=== PATIENT | male | born 1950 | race Caucasian/White ===

== ENCOUNTER 2018-09-22 09:03 | Inpatient (IN) | payer MEDICARE ==
--- NOTE | 2018-09-15 10:34 | HP ---
HISTORY AND PHYSICAL: DATE OF ADMISSION/SURGERY: 09/22/18 DATE OF OFFICE VISIT: 09/15/18 SURGEON: Anastasia Diamond MD * (DICTATED BY CHANDANA BRODY) PROCEDURE: Right total knee arthroplasty. CHIEF COMPLAINT: Right knee pain. HISTORY OF PRESENT ILLNESS: Mr. Perez is a 68-year-old gentleman with continued complaints of right knee pain. He has failed conservative treatment and elected to proceed with the right total knee arthroplasty. PAST MEDICAL HISTORY: 1. Hypertension. 2. High cholesterol. 3. History of a subdermal hematoma. PAST SURGICAL HISTORY: Appendectomy. CURRENT MEDICATIONS: 1. Simvastatin 80 mg a day. 2. Lisinopril 20 mg a day. 3. Metoprolol mg a day. 4. Hydrochlorothiazide 25 mg a day. ALLERGIES: No known drug allergies. FAMILY HISTORY: Cancer. SOCIAL HISTORY: He is a 68-year-old gentleman, lives with his . He does not smoke or use drugs. Drinks 1 beer a day. REVIEW OF SYSTEMS: A complete 14-point review of systems was reviewed with the patient. It was all negative or noncontributory. He denies the history of DVT , PE, hepatitis, HIV or anesthesia problems. PHYSICAL EXAMINATION GENERAL: He is well developed, well nourished, in no acute distress. VITAL SIGNS: He stands 6 feet 7 inches tall, weighs 190 pounds. His blood pressure is 128/88, heart rate 68. HEENT: Normocephalic, atraumatic. NECK: Supple. No palpable lymph nodes. PULMONARY: The lungs are clear to auscultation bilaterally. CARDIO: Regular rate and rhythm. Strong S1 and S2. ABDOMEN: The abdomen is soft, nontender, and nondistended. NEUROLOGICAL: He is alert and oriented x3. MUSCULOSKELETAL: Right lower extremity: The skin is intact. There are no open wounds or abrasions. There is a moderate effusion of the right knee. There is a 10 degree of varus deformity. Range of motion is 15 to 110 degrees of flexion with patellofemoral crepitus. He is able to dorsiflex and plantarflex. He has a 2+ dorsalis pedis pulse and intact sensation. ASSESSMENT AND PLAN: Mr. Perez is a 68-year-old gentleman with end-stage osteoarthritis of the right knee. He has failed conservative treatment and elected to proceed with the right total knee arthroplasty. The surgery is scheduled for 09/22/[address] Diamond discussed the risks and benefits of the surgery at today's visit and all of his questions were answered. He will follow up with Dr. Diamond 2 weeks after the surgery. CHANDANA BRODY [id number]/[facility] #: [id number] MINNIE
[~2018-09-22 09:03] MED LIST: Buffered Lidocaine 1% SYRIN* 1 ML/SYRINGE INTRADERM ONE; Dexamethasone IV* 4 MG/ML 1 ML (4 MG) IV SLOW PU ONE; Famotidine IV* 10 MG/ML 2 ML (20 mg) IV ONE; Gabapentin CAP(*) 300 MG PO ONE; Lactated Ringers 1000 ML Bag* 1,000 ML IV SCH; Tranexamic Acid 1,000 MG in NS 0.9% 50 ML* (outpatient use) IV SCH; celeCOXIB CAP* 200 MG PO ONE
--- OUTSIDE RECORDS SUMMARY | 2018-09-22 09:06 | XMS REPORT | Continuity of Care Document ---
:1950 External Reference #:[id number] Author Name Bing Sargent Care Team Providers Name Role Phone Franck Anglin MD Primary Care Physician Unavailable Payers Date Identification Numbers Payment Provider Subscriber Effective: 2014 Policy Number: [id number] Medicare Blue Ppo Anatoly Perez PayID: [id number] [address] [address] [place] [address] Problems Active Problems Provider Date Acquired genu varum Anastasia Diamond M.D. Onset: 08/26/2018 Localized, primary osteoarthritis Anastasia Diamond M.D. Onset: 08/26/2018 Social History Type Date Description Comments Sex Unknown Lives With Spouse Occupation Retired ETOH Use Currently consumes alcohol Tobacco Use Start: Unknown Patient has never smoked Smoking Status Reviewed: 09/11/18 Patient has never smoked Exercise Type/Frequency Exercises sporadically Allergies, Adverse Reactions, Alerts Description No Known Drug Allergies Medications Active Medications SIG Qnty Indications Ordering Date Provider Simvastatin 1 by mouth 100tabs Unknown 80mg Tablets every day Lisinopril 1 by mouth 30tabs Unknown 20mg Tablets every day Metoprolol Succinate ER 1 by mouth 30tabs Unknown 25mg every day Tablets ER 24HR Hydrochlorothiazide Derrek, 25mg Tablets Franck Dodge MD History Medications Naproxen 1 tablet bid 60tabs 715.16 Eric Rosario, 11/21/2011 - 250mg with food M.DLiliam 08/25/2018 Tablets Lipitor Unknown - 09/10/2018 Vital Signs Date Vital Result Comment 09/11/2018 1:45pm Height 67 inches 5'7" Weight 190.00 lb Heart Rate 68 /min BP Systolic 128 mmHg BP Diastolic 88 mmHg Respiratory Rate 18 /min Body Temperature 98.5 F Pain Level 3 BMI (Body Mass Index) 29.8 kg/m2 08/26/2018 9:35am Height 67 inches 5'7" Weight 189.00 lb Heart Rate 68 /min BP Systolic 120 mmHg BP Diastolic 82 mmHg Respiratory Rate 18 /min Body Temperature 97.9 F Pain Level 6 BMI (Body Mass Index) 29.6 kg/m2 Results Test Date Facility Test Result H/L Range Note Urinalysis Profile 09/11/2018 [facility] Urine Color Yellow [address] [place] [address] [phone] Urine Appearance Cloudy Urine Specific [place] 1.023 N 1.010-1.030 Urine pH 5.0 N 5-9 Urine Urobilinogen Negative Negative Urine Ketones Negative Negative Urine Protein Negative Negative Urine Leukocytes Trace Abnormal Negative Urine Blood Negative Negative * * Abnormal Negative 1 Urine Nitrite Negative Negative Urine Bilirubin Negative Negative Urine Glucose Negative Negative Urine White Blood Cell 1+(6-10/hpf) Abnormal Absent Urine Red Blood Cell Trace(0-2/hpf) Absent Urine Bacteria Absent Absent Urine Hyaline Casts Present Abnormal Absent CBC Auto Diff 09/11/2018 [facility] White Blood 7.6 10^3/uL N 3.5-10.[address] [place] [address] [phone] Red Blood Count 4.31 10^6/uL N 4.18-5.48 Hemoglobin 14.0 g/dL N 14.0-18.0 Hematocrit 40 % Low 42-52 Mean Corpuscular Volume 93 fL N 80-94 Mean Corpuscular Hemoglobin 33 pg High 27-31 Mean Corpuscular HGB Conc 35 g/dL N 31-36 Red Cell Distribution Width 13 % N 10-15 Platelet Count 248 10^3/uL N 150-450 Mean Platelet Volume 9.2 fL N 7.4-10.4 Abs Neutrophils 4.1 10^3/uL N 1.5-7.7 Abs Lymphocytes 2.4 10^3/uL N 1.0-4.8 Abs Monocytes 0.7 10^3/uL N 0-0.8 Abs Eosinophils 0.5 10^3/uL N 0-0.6 Abs Basophils 0.1 10^3/uL N 0-0.2 Abs Nucleated RBC 0.0 10^3/uL Granulocyte % 53.6 % Lymphocyte % 31.0 % Monocyte % 8.6 % Eosinophil % 6.1 % Basophil % 0.7 % Nucleated Red Blood Cells % 0.1 Inr/Protime 09/11/2018 [facility] Inr 0.95 N 0.82-1.[address] [place] [address] [phone] Laboratory test 09/11/2018 [facility] Partial 33.3 seconds N 26.0-38.[address] [place] [address] PTT [phone] Comp Metabolic 09/11/2018 [facility] Sodium 139 mmol/L N 135- [address] [place] [address] [phone] Potassium 4.0 mmol/L N 3.5-5.0 Chloride 103 mmol/L N 101-111 Co2 Carbon Dioxide 27 mmol/L N 22-32 Anion Gap 9 mmol/L N 2-11 Glucose 105 mg/dL High 70-100 Blood Urea Nitrogen 26 mg/dL High 6-24 Creatinine 1.15 mg/dL N 0.67-1.17 BUN/Creatinine Ratio 22.6 High 8-20 Calcium 10.1 mg/dL N 8.6-10.3 Total Protein 6.8 g/dL N 6.4-8.9 Albumin 4.5 g/dL N 3.2-5.2 Globulin 2.3 g/dL N 2-4 Albumin/Globulin Ratio 2.0 N 1-3 Total Bilirubin 0.50 mg/dL N 0.2-1.0 Alkaline Phosphatase 69 U/L N 34-104 Alt 13 U/L N 7-52 Ast 17 U/L N 13-39 Egfr Non- 63.1 >60 Egfr 76.3 >60 3 Type & Screen 09/11/2018 [facility] Patient Blood Type O Positive [address] [place] [address] [phone] Antibody Screen NEGATIVE Urine Culture And 09/11/2018 [facility] Urine Culture SEE RESULT [address] [place] [address] [phone] Xray 08/26/2018 [facility] Knee 3 Views <pending> [address] [place] [address] [phone] 1 *Ascorbic acid is present which may interfere with detection of blood. 2 Standard intensity warfarin therapeutic range: 2.0-3.0 High intensity warfarin therapeutic range: 2.5-3.5 3 Because ethnic data is not always readily available, this report includes an eGFR for both -Americans and non- Americans. The National Kidney Disease Education Program (NKDEP) does not endorse the use of the MDRD equation for patients that are not between the ages of 18 and 70, are , have extremes of body size, muscle mass, or nutritional status, or are non- or non-. According to the National Kidney Foundation, irrespective of diagnosis, the stage of the disease is based on the level of kidney function: Stage Description GFR(mL/min/1.73 m(2)) 1 Kidney damage with normal or decreased GFR 90 2 Kidney damage with mild decrease in GFR 60-89 3 Moderate decrease in GFR 30-59 4 Severe decrease in GFR 15-29 5 Kidney failure <15 (or dialysis) 4 SEE RESULT BELOW Name: ANATOLY PEREZ : [address]: Anastasia Diamond MD Acct: [id number] Unit: [id number] AGE: 68 Location: [facility] Re09/11/18 SEX: M Status: REG REF SPEC: [id number] POPPY: 09/11/18 [facility] DR: Anastasia Diamond MD REQ: [id number] RECD: 09/11/18 STATUS: COMP _ SOURCE: URINE SPDESC: ORDERED: Urine Culture QUERIES: Urine Source: Clean Catch Procedure Result Reported Site Urine Culture Final 09/13/18- 08 ML No Growth (<1,000 CFU/mL) * ML - Main Lab . END OF REPORT DEPARTMENT OF PATHOLOGY, [address] [place] [address] Ismael Painter M.D. Director [facility] # [id number] Procedures Date Code Description Status 11/21/2011 19621 Xray Knee 3 Views Completed 11/21/2011 11388 Rad Exam; Knee, Ap&L Completed Encounters Type Date Location Provider Dx Diagnosis Office Visit 08/26/2018 [facility] Anastasia Diamond, M25.561 Pain in right 9:00a [facility] knee M17.11 Unilateral primary osteoarthritis, right knee M25.461 Effusion, right knee M21.161 Varus deformity, not elsewhere classified, right knee Office Visit 11/21/2011 3:00p Orthopedic Jocelin Silva, 716.96 Arthropathy Unspec [facility] Lower Leg [facility] Plan of Treatment Future Appointment(s):10/02/2018 11:15 am - CHANDANA Munoz at [facility]09/22/2018 5:00 pm - EZEQUIEL Meraz at [facility]09/22/2018 5:00 pm - EZEQUIEL Maldonado at [facility]09/22/2018 5:00 pm - Anastasia Diamond M.D. at [facility]09/11/2018 - Anastasia Diamond M.D.M25.561 Pain in right kneeFollow up:Follow up: 2 weeks after [id number] Unilateral primary osteoarthritis, right kneeM21.161 Varus deformity, not elsewhere classified, right kneeM25.461 Effusion, right knee
--- OUTSIDE RECORDS SUMMARY | 2018-09-22 09:07 | XMS REPORT | Continuity of Care Document ---
:1950 External Reference #:[id number] Author Name Annette Bauer Care Team Providers Name Role Phone Franck Anglin MD Primary Care Physician Unavailable Payers Date Identification Numbers Payment Provider Subscriber Effective: 2014 Policy Number: [id number] Medicare Blue Ppo Anatoly Perez PayID: [id number] [address] [address] [place] [address] Problems Active Problems Provider Date Acquired genu varum Anastasia Diamond M.D. Onset: 08/26/2018 Localized, primary osteoarthritis Anastasia Diamond M.D. Onset: 08/26/2018 Social History Type Date Description Comments Sex Unknown Lives With Spouse Occupation Retired ETOH Use Currently consumes alcohol Tobacco Use Start: Unknown Patient has never smoked Smoking Status Reviewed: 08/26/18 Patient has never smoked Exercise Type/Frequency Exercises sporadically Medications Active Medications SIG Qnty Indications Ordering Provider Date Lipitor Unknown Simvastatin Unknown Lisinopril Unknown Metoprolol Succinate ER Unknown Hydrochlorothiazide Franck Anglin, 25mg Tablets History Medications Naproxen 1 tablet bid 60tabs 715.16 Eric Rosario, 11/21/2011 - 250mg with food Elian 08/25/2018 Tablets Vital Signs Date Vital Result Comment 08/26/2018 9:35am Height 67 inches 5'7" Weight 189.00 lb Heart Rate 68 /min BP Systolic 120 mmHg BP Diastolic 82 mmHg Respiratory Rate 18 /min Body Temperature 97.9 F Pain Level 6 BMI (Body Mass Index) 29.6 kg/m2 Procedures Date Code Description Status 11/21/2011 62199 Xray Knee 3 Views Completed 11/21/2011 96212 Rad Exam; Knee, Ap&L Completed Encounters Type Date Location Provider Dx Diagnosis Office Visit 11/21/2011 Orthopedic Jocelin Lewise, 716.96 Arthropathy Unspec 3:00p [facility] Lower Leg Plan of Treatment Future Appointment(s):09/11/2018 1:30 pm - Anastasia Diamond M.D. at [facility]08/26/2018 - Anastasia Diamond M.D.M25.561 Pain in right kneeNew Xrays:Knee 3 Views RT, Ordered: 08/26/18Follow up:Follow up: 7-10 days before [id number] Unilateral primary osteoarthritis, right kneeM25.461 Effusion, right kneeFollow up:Follow up:M21.161 Varus deformity, not elsewhere classified , right knee
--- OUTSIDE RECORDS SUMMARY | 2018-09-22 09:07 | XMS REPORT | Continuity of Care Document ---
:1950 External Reference #:[id number] Author Name Barbara Purdy Care Team Providers Name Role Phone Franck Anglin MD Primary Care Physician Unavailable Payers Date Identification Numbers Payment Provider Subscriber Effective: 2014 Policy Number: [id number] Medicare Blue Ppo Anatoly Perez PayID: [id number] [address] [address] [place] [address] Problems Active Problems Provider Date Acquired genu [...] Eric Rosario, 11/21/2011 - 250mg with food MArnav 08/25/2018 Tablets Lipitor Unknown - 09/10/2018 Vital [...] Date Facility Test Result H/L Range Note Xray 08/26/2018 [facility] Knee 3 Views RT <pending> [address] [place] [address] [phone] Procedures Date Code Description Status 11/21/2011 02532 Xray Knee 3 Views Completed 11/21/2011 38659 Rad Exam; Knee, Ap&L Completed Encounters Type Date Location Provider Dx Diagnosis Office Visit 08/26/2018 Orthopedic Anastasia Diamond, M25.561 Pain in right 9:00a [facility] knee M17.11 Unilateral primary osteoarthritis, right knee M25.461 Effusion, right knee M21.161 Varus deformity, not elsewhere classified, right knee Office Visit 11/21/2011 3:00p Orthopedic Jocelin Silva, 716.96 Arthropathy Unspec [facility] Lower Leg [facility] Plan of Treatment Future Appointment(s):10/02/2018 11:15 am - CHANDANA Munoz at [facility]09/22/2018 5:00 pm - EZEQUIEL Meraz at [facility]/22/2018 5:00 pm - EZEQUIEL Maldonado at [facility]09/22/2018 5:00 pm - Anastasia Diamond M.D. at [facility]09/11/2018 - Anastasia Diamond M.D.M25.561 Pain in right kneeFollow up:Follow up: 2 weeks after [id number] Unilateral primary osteoarthritis, right kneeM21.161 Varus deformity, not elsewhere classified, right kneeM25.461 Effusion, right knee
--- OUTSIDE RECORDS SUMMARY | 2018-09-22 09:07 | XMS REPORT | Continuity of Care Document ---
:1950 External Reference #:[id number] Author Name Franck Anglin MD Address [address] [place] [address] Care Team Providers Name Role Phone Franck Anglin MD Care Team Information Yarn Packer Unavailable Payers Date Identification Numbers Payment Provider Subscriber Effective: Policy Number: [id number] [facility] Expires: 2011 Group Number: [id number] Name: BC/[place] of [place] [address] PayID: [id number] Effective: 2011 Policy Number: [id number] [facility] Expires: 2014 Group Name: [employer] [facility] [address] [address] PayID: [id number] [place] [address] Effective: 2014 Policy Number: [employer] Anatoly El Ana [id number] [employer] PayID: [id number] [address] [address] [place] [address] Problems Active Problems Provider Date Essential hypertension Vielka Chan M.D. Onset: 08/29/2011 Pure hypercholesterolemia Vielka Chan M.D. Onset: 08/29/2011 Screening for cancer Vielka Chan M.D. Onset: 08/29/2011 Benign prostatic hypertrophy without Georgiana Mcfarlane M.D., R.D. Onset: 2011 outflow obstruction Senile hyperkeratosis Onset: 08/29/2011 Family History Date Family Member(s) Observation Comments General No prostate or colon CA. Father due to "Old Age" () Father CAD Father Hypercholesterolemia : (1994) Mother due to Cancer Mother Hypercholesterolemia Mother Mother Age 69 Of Brain Tumor. First Son 08/22/1987 First Son Jacob First Daughter Dada First Daughter 02/06/1983 Second Daughter Elsa Second Daughter 12/04/1984 First Sister Colon polyps First Sister One Younger Sister, Alive And Well. Fourth Sister Elsa Social History Type Date Description Comments Sex Unknown Marital Status Patient is Living Situation Lives with spouse. Diet Eats oreos. Eats a lot of fish. Spends part of year at place in [place]. Wears a hat, but still gets sun on his head. Sees a derm regularly for his skin. 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 Cigarette Use Smoked About 20 Years Or 15 Pack-Years, Quit 1982. Alcohol Currently consumes alcohol, drinks 4 six packs of beer a week Tobacco Use Start: Unknown End: Patient is a former smoker Unknown Daily Caffeine Drinks on average 1 cup of coffee a day Exercise Type/Frequency Exercises regularly. Current Primarily bicycles. Allergies, Adverse Reactions, Alerts Description No Known Drug Allergies Medications Active Medications SIG Qnty Indications Ordering Date Provider Metoprolol Tartrate AT The Start Of 90tabs Franck 50mg Therapy Take MD Derrek 6 Tablets One-Half (1/2) Tablet Nightly For The First Week, Then Take 1 Tablet Nightly Thereafter Hydrochlorothiazide AT The Start Of 90tabs Franck 25mg Therapy Take MD Derrek 5 Tablets One-Half (1/2) Tablet Daily For First Week, Then Take 1 Tablet Daily Thereafter Lisinopril Take 1 Tablet 90tabs I10 Franck 10mg Tablets Daily MD Derrek 5 Naproxen take one pill by 180tabs Vielka Sanchez 250mg Tablets mouth twice a Elian Chan 3 day Simvastatin Take 1 Tablet 90tabs Franck 80mg Tablets Daily MD Derrek 3 History Medications Aspirin Adult Low Dose 1 tab by mouth 30tabs Z00.00 Franck Derrek, - daily 09/09/2018 81mg Tablets Metoprolol Succinate take one 90tabs Vielka M. 09/02/2012 - ER tablet by Elian Chan 12/21/2014 50mg Tablets ER 24HR mouth every morning Metoprolol Tartrate 1 po qd 90tabs Vielka M. 08/07/2012 - 50mg Elian Chan 09/02/2012 Tablets Diazepam 1-2 tabs q6h 8tabs V76.9 Vielka M. 08/02/2011 - 5mg Tablets prn anxiety Elian Chan 09/16/2013 Periostat Georgiana Mcfarlane, 09/18/2009 - 20mg Tablets Elian, R.D. 09/16/2013 Metoprolol Tartrate 1 po bid 180tabs Georgiana Mcfarlane, 07/08/2008 - 25mg Elian, R.D. 05/30/2010 Tablets Diazepam 1-2 tabs q6h 8tabs Georgiana Mcfarlane, 08/13/2006 - 5mg Tablets prn anxiety Elian, R.D. 08/02/2011 Metoprolol XL 1 qd 90tabs Vielka M. 05/21/2004 - 50mg Elian Chan 08/07/2012 Tablets KCL 1 po qd 90tabs Vielka M. 05/11/2004 - 10Meq Tablets Elian Chan 08/07/2012 Chlorthalidone 1 qd 90tabs Georgiana Mcfarlane, 09/19/2003 - 25mg Elian, R.D. 08/02/2011 Tablets Lipitor one qd 90tabs Vielka M. 05/18/2003 - 40mg Tablets Elian Chan 08/07/2012 Lipitor one qd 90tabs Keny Sandra, 03/24/2002 - 20mg Tablets DanielDLiliam 05/18/2003 Lipitor One qd 90tabs Keny Sandra, 03/01/2002 - 10mg Tablets MLiliamDLiliam 03/24/2002 Immunizations CPT Code Status Date Vaccine Lot # [id number] Given 12/21/2014 Pneumovax 23 (PPSV23) 65+ years or high risk 2 to [id number] 63 year old 82005 Given 12/21/2014 Influenza Vaccine High Dose PF [id number] Given 08/02/2011 Tdap (Adacel) [id number] Refused 12/19/2017 Influenza Virus Vaccine, Quadrivalent, 3 Yr > Quad , Preserv Free [id number] Refused 12/19/2017 Prevnar-13 Pneumococcal Conjugate Vaccine [id number] Refused 12/16/2016 Zoster Vaccine [id number] Refused 12/16/2016 Influenza Virus Vaccine, Quadrivalent, 3 Yr > Quad , Preserv Free [id number] Refused 12/25/2015 Influenza Virus Vaccine, Quadrivalent, 3 Yr > Quad , Preserv Free Vital Signs Date Vital Result Comment 09/09/2018 9:05am Weight 188.00 lb Weight 85.277 kg BP Systolic 132 mmHg BP Diastolic 72 mmHg Heart Rate 64 /min Body Temperature 97.4 F Respiratory Rate 16 /min O2 % BldC Oximetry 97 % 12/19/2017 8:07am Weight 193.00 lb Weight 87.545 kg BP Systolic 134 mmHg BP Diastolic 72 mmHg Heart Rate 54 /min Body Temperature 97.3 F Respiratory Rate 16 /min Height 67.5 inches 5'7.50" BMI (Body Mass Index) 29.8 kg/m2 O2 % BldC Oximetry 98 % 12/16/2016 8:03am Weight 185.00 lb Weight 83.916 kg BP Systolic 136 mmHg BP Diastolic 76 mmHg Heart Rate 52 /min Body Temperature 96.2 F Respiratory Rate 12 /min Height 66.5 inches 5'6.50" BMI (Body Mass Index) 29.4 kg/m2 12/25/2015 12:57pm Weight 192.00 lb Weight 87.091 kg BP Systolic 165 mmHg BP Diastolic 88 mmHg Heart Rate 56 /min Height 66 inches 5'6" BMI (Body Mass Index) 31.0 kg/m2 12/21/2014 8:04am Weight 180.00 lb Weight 81.648 kg BP Systolic 140 mmHg BP Diastolic 90 mmHg Heart Rate 56 /min Height 67 inches 5'7" BMI (Body Mass Index) 28.2 kg/m2 09/16/2013 8:27am Weight 174.00 lb Weight 78.926 kg BP Systolic 142 mmHg BP Diastolic 72 mmHg Heart Rate 60 /min Body Temperature 97.6 F Height 67 inches 5'7" BMI (Body Mass Index) 27.2 kg/m2 08/07/2012 9:00am Weight 190.00 lb Weight 86.184 kg BP Systolic 128 mmHg BP Diastolic 82 mmHg Heart Rate 52 /min Height 66.25 inches 5'6.25" BMI (Body Mass Index) 30.4 kg/m2 08/02/2011 8:57am Weight 178.00 lb Weight 80.741 kg BP Systolic 122 mmHg BP Diastolic 70 mmHg Heart Rate 80 /min Height 67 inches 5'7" BMI (Body Mass Index) 27.9 kg/m2 09/18/2009 1:26pm Weight 170.00 lb Weight 77.112 kg BP Systolic 130 mmHg BP Diastolic 80 mmHg Heart Rate 60 /min Height 66.75 inches 5'6.75" BMI (Body Mass Index) 26.8 kg/m2 09/12/2008 8:28am Weight 164.00 lb Weight 74.390 kg BP Systolic 130 mmHg BP Diastolic 78 mmHg Heart Rate 64 /min Height 67 inches 5'7" BMI (Body Mass Index) 25.7 kg/m2 09/07/2007 1:48pm Weight 190.00 lb Weight 86.184 kg BP Systolic 132 mmHg BP Diastolic 84 mmHg Heart Rate 82 /min Height 67 inches 5'7" BMI (Body Mass Index) 29.8 kg/m2 08/13/2006 1:43pm Weight 185.00 lb Weight 83.916 kg BP Systolic 136 mmHg BP Diastolic 74 mmHg Heart Rate 68 /min Height 67 inches 5'7" BMI (Body Mass Index) 29.0 kg/m2 06/12/2005 12:44pm Weight 184.00 lb Weight 83.462 kg BP Systolic 140 mmHg BP Diastolic 86 mmHg Heart Rate 76 /min Height 66.5 inches 5'6.50" BMI (Body Mass Index) 29.3 kg/m2 05/21/2004 1:44pm Weight 183.00 lb Weight 83.009 kg BP Systolic 160 mmHg BP Diastolic 100 mmHg Heart Rate 84 /min Respiratory Rate 18 /min Height 67 inches 5'7" BMI (Body Mass Index) 28.7 kg/m2 09/19/2003 4:13pm Weight 181.00 lb Weight 82.102 kg BP Systolic 160 mmHg BP Diastolic 80 mmHg 05/18/2003 2:42pm Weight 180.00 lb Weight 81.648 kg BP Systolic 140 mmHg BP Diastolic 100 mmHg Heart Rate 80 /min Respiratory Rate 18 /min Height 67 inches BMI (Body Mass Index) 28.2 kg/m2 03/24/2002 1:55pm Weight 188.00 lb Weight 85.300 kg BP Systolic 140 mmHg BP Diastolic 98 mmHg Heart Rate 76 /min Respiratory Rate 18 /min Height 67.5 inches BMI (Body Mass Index) 29.0 kg/m2 Results Test Date Facility Test Result H/L Range Note Statin 11/13/2017 [facility] Ast (Sgot) 18 U/L N 13 -39 [phone] Alt (SGPT) 16 U/L N 7-52 Lipid Profile 11/13/2017 [facility] Triglycerides 145 mg/dL 1 (Trig/Chol/HDL) [phone] Cholesterol 140 mg/dL 2 HDL Cholesterol 39.3 mg/dL 3 LDL Cholesterol 72 mg/dL 4 Basic Metabolic 11/13/2017 [facility] Sodium 142 mmol /L N 135-145 Panel [phone] Potassium 4.1 mmol/L N 3.5-5.0 Chloride 106 mmol/L N 101-111 Co2 Carbon Dioxide 30 mmol/L N 22-32 Anion Gap 6 mmol/L N 2-11 Glucose 94 mg/dL N 70-100 Blood Urea Nitrogen 20 mg/dL N 6-24 Creatinine 1.07 mg/dL N 0.67-1.17 BUN/Creatinine Ratio 18.7 N 8-20 Calcium 9.8 mg/dL N 8.6-10.3 Egfr Non- 68.7 >60 Egfr 83.2 >60 5 CBC No Diff 11/13/2017 [facility] White Blood 6.1 10^ 3/uL N 3.5-10.8 [phone] Count Red Blood Count 4.13 10^6/uL N 4.00-5.40 Hemoglobin 13.2 g/dL Low 14.0-18.0 Hematocrit 38 % Low 42-52 Mean Corpuscular Volume 92 fL N 80-94 Mean Corpuscular Hemoglobin 32 pg High 27-31 Mean Corpuscular HGB Conc 35 g/dL N 31-36 Red Cell Distribution Width 13 % N 10.5-15 Platelet Count 236 10^3/uL N 150-450 Mean Platelet Volume 8.5 um3 N 7.4-10.4 CBC Auto Diff 11/28/2016 [facility] White Blood 6.5 10^3/uL N 3.5-10.8 [phone] Count Red Blood Count 4.47 10^6/uL N 4.0-5.4 Hemoglobin 14.1 g/dL N 14.0-18.0 Hematocrit 42 % N 42-52 Mean Corpuscular Volume 93 fL N 80-94 Mean Corpuscular Hemoglobin 32 pg High 27-31 Mean Corpuscular HGB Conc 34 g/dL N 31-36 Red Cell Distribution Width 13 % N 10.5-15 Platelet Count 222 10^3/uL N 150-450 Mean Platelet Volume 9 um3 N 7.4-10.4 Abs Neutrophils 3.7 10^3/uL N 1.5-7.7 Abs Lymphocytes 1.9 10^3/uL N 1.0-4.8 Abs Monocytes 0.5 10^3/uL N 0-0.8 Abs Eosinophils 0.4 10^3/uL N 0-0.6 Abs Basophils 0 10^3/uL N 0-0.2 Abs Nucleated RBC 0 10^3/uL N Granulocyte % 56.1 % N 38-83 Lymphocyte % 29.2 % N 25-47 Monocyte % 7.3 % N 1-9 Eosinophil % 6.7 % High 0-6 Basophil % 0.7 % N 0-2 Nucleated Red Blood Cells % 0.1 N Comp Metabolic Panel 11/28/2016 [facility] Sodium 142 mmol/L N 133-145 [phone] Potassium 4.4 mmol/L N 3.5-5.0 Chloride 106 mmol/L N 101-111 Co2 Carbon Dioxide 29 mmol/L N 22-32 Anion Gap 7 mmol/L N 2-11 Glucose 90 mg/dL N 70-100 Blood Urea Nitrogen 17 mg/dL N 6-24 Creatinine 1.02 mg/dL N 0.67-1.17 BUN/Creatinine Ratio 16.7 N 8-20 Calcium 10.2 mg/dL N 8.6-10.3 Total Protein 6.9 g/dL N 6.4-8.9 Albumin 4.7 g/dL N 3.2-5.2 Globulin 2.2 g/dL N 2-4 Albumin/Globulin Ratio 2.1 N 1-3 Total Bilirubin 0.80 mg/dL N 0.2-1.0 Alkaline Phosphatase 54 U/L N 34-104 Alt 20 U/L N 7-52 Ast 22 U/L N 13-39 Egfr Non- 72.8 N >60 Egfr 93.7 N >60 6 Lipid Profile 11/28/2016 [facility] Triglycerides 132 mg/dL N 7 (Trig/Chol/HDL) [phone] Cholesterol 180 mg/dL N 8 HDL Cholesterol 53.7 mg/dL N 9 LDL Cholesterol 100 mg/dL N 10 Lipid Profile 12/14/2015 [facility] Triglycerides 176 mg/dL N 11 (Trig/Chol/HDL) [phone] Cholesterol 181 mg/dL N 12 HDL Cholesterol 52.9 mg/dL N 13 LDL Cholesterol 93 mg/dL N 14 Comp Metabolic Panel 12/14/2015 [facility] Sodium 140 mmol/L N 133-145 [phone] Potassium 4.3 mmol/L N 3.5-5.0 Chloride 104 mmol/L N 101-111 Co2 Carbon Dioxide 29 mmol/L N 22-32 Anion Gap 7 mmol/L N 2-11 Glucose 90 mg/dL N 70-100 Blood Urea Nitrogen 17 mg/dL N 6-24 Creatinine 0.96 mg/dL N 0.67-1.17 BUN/Creatinine Ratio 17.7 N 8-20 Calcium 9.9 mg/dL N 8.6-10.3 Total Protein 6.8 g/dL N 6.4-8.9 Albumin 4.4 g/dL N 3.2-5.2 Globulin 2.4 g/dL N 2-4 Albumin/Globulin Ratio 1.8 N 1-3 Total Bilirubin 0.80 mg/dL N 0.2-1.0 Alkaline Phosphatase 56 U/L N 34-104 Alt 17 U/L N 7-52 Ast 19 U/L N 13-39 Egfr Non- 78.4 N >60 Egfr 100.8 N >60 15 CBC Auto Diff 12/14/2015 [facility] White Blood 6.1 10^3/uL N 3.5-10.8 [phone] Count Red Blood Count 4.54 10^6/uL N 4.0-5.4 Hemoglobin 14.2 g/dL N 14.0-18.0 Hematocrit 42 % N 42-52 Mean Corpuscular Volume 93 fL N 80-94 Mean Corpuscular Hemoglobin 31 pg N 27-31 Mean Corpuscular HGB Conc 34 g/dL N 31-36 Red Cell Distribution Width 13 % N 10.5-15 Platelet Count 239 10^3/uL N 150-450 Mean Platelet Volume 9 um3 N 7.4-10.4 Abs Neutrophils 3.2 10^3/uL N 1.5-7.7 Abs Lymphocytes 2.2 10^3/uL N 1.0-4.8 Abs Monocytes 0.5 10^3/uL N 0-0.8 Abs Eosinophils 0.3 10^3/uL N 0-0.6 Abs Basophils 0 10^3/uL N 0-0.2 Abs Nucleated RBC 0 10^3/uL N Granulocyte % 51.6 % N 38-83 Lymphocyte % 35.6 % N 25-47 Monocyte % 7.4 % N 1-9 Eosinophil % 4.9 % N 0-6 Basophil % 0.5 % N 0-2 Nucleated Red Blood Cells % 0.1 N Urine DIP 12/21/2014 In House Lab Specific [place] 1.020 1.01-1.02 (607)- - Urine pH 5 5-6 Leukocytes trace Neg Urine Nitrites neg Neg Total Protein, Urine trace Neg Urine Glucose norm Norm Urine Ketones neg Neg Urobilinogen norm Norm Urine Bilirubin neg Neg Urine Blood neg Neg Basic Metabolic 12/15/2014 [facility] Sodium 141 mmol /L N 133-145 Panel [phone] Potassium 4.5 mmol/L N 3.5-5.0 Chloride 107 mmol/L N 101-111 Co2 Carbon Dioxide 28 mmol/L N 22-32 Anion Gap 6 mmol/L N 2-11 Glucose 85 mg/dL N 70-100 Blood Urea Nitrogen 14 mg/dL N 6-24 Creatinine 0.81 mg/dL N 0.67-1.17 BUN/Creatinine Ratio 17.3 N 8-20 Calcium 9.0 mg/dL N 8.6-10.3 Egfr Non- 95.6 N >60 Egfr 123.0 N >60 16 Lipid Profile 12/15/2014 [facility] Triglycerides 119 mg/dL N 17 (Trig/Chol/HDL) [phone] Cholesterol 148 mg/dL N 18 HDL Cholesterol 43.9 mg/dL N 19 LDL Cholesterol 80 mg/dL N 20 Urine DIP 09/16/2013 In House Lab Specific [place] 1.020 1.01-1.02 (607)- - Urine pH 6 5-6 Leukocytes trace Neg Urine Nitrites neg Neg Total Protein, Urine neg Neg Urine Glucose norm Norm Urine Ketones neg Neg Urobilinogen norm Norm Urine Bilirubin neg Neg Urine Blood trace Neg Laboratory 09/03/2013 [facility] Hepatitis C Nonreactive N Nonreactive 21 test finding [phone] Antibody Basic 09/03/2013 [facility] Sodium 140 mmol/L N 133 -145 Metabolic [phone] Panel Potassium 4.2 mmol/L N 3.7-5.6 Chloride 106 mmol/L N 101-111 Co2 Carbon Dioxide 31 mmol/L N 22-32 Anion Gap 3 mmol/L N 2-11 Glucose 84 mg/dL N 70-100 Blood Urea Nitrogen 18 mg/dL N 6-24 Creatinine 0.82 mg/dL N 0.67-1.17 BUN/Creatinine Ratio 22.0 High 8-20 Calcium 9.4 mg/dL N 8.6-10.3 Egfr Non- 94.6 N >60 Egfr 121.6 N >60 22 Laboratory test 09/03/2013 [facility] TSH (Thyroid 1.27 N 0.34-5.60 23 finding [phone] Stimulating IU/mL Horm) Liver Function 09/03/2013 [facility] Total Protein 6.7 g/dL N 6.4-8.9 Panel [phone] Albumin 4.2 g/dL N 3.2-5.2 Globulin 2.5 g/dL N 2-4 Albumin/Globulin Ratio 1.7 N 1-3 Total Bilirubin 0.80 mg/dL N 0.2-1.0 Direct Bilirubin 0.20 mg/dL High 0.03-0.18 Indirect Bilirubin 0.6 mg/dL N 0.3-1.0 Alkaline Phosphatase 69 U/L N 34-104 Alt 26 U/L N 7-52 Ast 29 U/L N 13-39 Lipid Profile 09/03/2013 [facility] Triglycerides 97 mg/dL N 24 (Trig/Chol/HDL) [phone] Cholesterol 124 mg/dL N 25 HDL Cholesterol 35.9 mg/dL N 26 LDL Cholesterol 69 mg/dL N 27 Liver Function 08/07/2012 [facility] Total Protein 5.8 g/dL Low 6.2-8.1 Panel [phone] Albumin 4.2 g/dL 3.2-5.2 Globulin 1.6 g/dL Low 2-4 Albumin/Globulin Ratio 2.6 1-3 Total Bilirubin 0.9 mg/dL 0.4-1.5 Direct Bilirubin 0.1 mg/dL 0.1-0.5 Indirect Bilirubin 0.8 mg/dL 0.3-1.0 Alkaline Phosphatase 79 U/L 30-110 Alt 19 U/L 14-54 Ast 24 U/L 12-42 Basic Metabolic 08/07/2012 [facility] Sodium 142 mmol /L 133-145 Panel [phone] Potassium 4.5 mmol/L 3.5-5.0 Chloride 106 mmol/L 101-111 Co2 Carbon Dioxide 30.0 mmol/L 22-32 Anion Gap 6.0 mmol/L 2-11 Glucose 91 mg/dL 70-100 Blood Urea Nitrogen 22 mg/dL 6-24 Creatinine 0.80 mg/dL 0.50-1.40 BUN/Creatinine Ratio 27.5 High 8-20 Calcium 9.8 mg/dL 8.1-9.9 Egfr Non- 97.6 >60 Egfr 125.6 >60 28 Laboratory test 08/07/2012 [facility] TSH (Thyroid 1.44 0.34-5.60 finding [phone] Stimulating Horm) miu/mL Lipid Profile 08/07/2012 [facility] Triglycerides 102 mg/dL 40-200 (Trig/Chol/HDL) [phone] Cholesterol 150 mg/dL Less than 200 HDL Cholesterol 41 mg/dL 40-60 29 Cholesterol/HDL Ratio 3.7 Average 1-4.44 LDL Cholesterol 88.6 mg/dL Less Than 100 30 Urine DIP 08/02/2011 In House Lab Leukocytes NEG Neg (607)- - Urine Nitrites NEG Neg Urine pH 5 5-6 Total Protein, Urine NEG Neg Urine Glucose NORM Norm Urine Ketones NEG Neg Urobilinogen NORM Norm Urine Bilirubin NEG Neg Urine Blood NEG Neg Specific [place] N/A Low 1.01-1.02 CBC Auto Diff 07/30/2011 [facility] White Blood 6.9 CUMM 4.8-10.8 [phone] Count Red Cell Count 4.64 CUMM 4.6-6.2 Hemoglobin 15.1 g/dL 14.0-18.0 Hematocrit 43 % 42-52 Mean Corpuscular Volume 93 um3 80-94 Mean Corpuscular Hemoglob 33 pg High 27-31 Mean Corpuscular HGB Cone 35 g/dL 32-36 Redcell Distribution WDTH 13 % 10.5-15 Platelet Count 234 CUMM 150-450 Mean Platelet Volume 9.4 um3 7.4-10.4 Gran % 60.6 % 38-83 Lymph % 24.9 % Low 25-47 Mononuclear % 6.9 % 1-9 Eosinophil % 7.2 % High 0-6 Basophil % 0.4 % 0-2 Abs Lymphs 1.7 1.0-4.8 Abs Mononuclear 0.5 0-0.8 Absolute Neutrophil Count 4.2 1.5-7.7 Abs Eosinophils 0.5 0-0.6 Abs Basophils 0 0-0.2 Comp Metabolic Panel 07/30/2011 [facility] Sodium 139 mmol/L 135-145 [phone] Potassium 4.6 mmol/L 3.5-5.0 Chloride 106 mmol/L 101-111 Co2 (Carbon Dioxide) 28.0 mmol/L 22-32 Anion Gap 5.0 mmol/L 2-11 31 Glucose 83 mg/dL 70-100 BUN 17 mg/dL 6-24 Creatinine 0.7 mg/dL 0.50-1.40 One Over Creatinine 1.42 BUN/Creatinine Ratio 24.3 High 8-20 Calcium 9.8 mg/dL 8.1-9.9 Total Protein 6.5 GM/DL 6.2-8.1 Albumin 4.2 GM/DL 3.2-5.2 Globulin 2.3 GM/DL 2-4 Albumin/Globulin Ratio 1.8 1-3 Bilirubin Total 1.1 mg/dL 0.4-1.5 32 Alkaline Phosphatase 79 U/L 39-117 Alt (SGPT) 31 U/L 17-63 Ast (Sgot) 30 U/L 12-42 eGFR Non- 114.3 > 60 eGFR 147.0 > 60 33 Laboratory test 07/30/2011 [facility] PSA 2.77 NG/ML 0-4 34 finding [phone] Lipid Profile 07/30/2011 [facility] Triglyceride 127 mg/dL 40-200 (Trig/Chol/HDL) [phone] Cholesterol 152 mg/dL Less Than 200 35 High Density Lipoprotein 38 mg/dL Low 40-60 36 Cholesterol/HDL Ratio 4.00 AVERAGE 1-4.97 Low Density Lipoprotein 89 mg/dL Less Than 100 37 Urine DIP 09/18/2009 In House Lab Leukocytes NEG Neg (607)- - Urine Nitrites NEG Neg Urine pH 6 5-6 Total Protein, Urine NEG Neg Urine Glucose NORM Norm Urine Ketones NEG Neg Urobilinogen NORM Norm Urine Bilirubin NEG Neg Urine Blood NEG Neg Specific [place] NA Low 1.01-1.02 Lipid Profile 09/11/2009 [facility] Triglyceride 99 mg/dL 40-200 (Trig/Chol/HDL) [phone] Cholesterol 143 mg/dL Less Than 200 38 High Density Lipoprotein 42 mg/dL 40-60 39 Cholesterol/HDL Ratio 3.40 AVERAGE 1-4.97 Low Density Lipoprotein 81 mg/dL Less Than 100 40 Laboratory test 09/11/2009 [facility] PSA,Diagnostic 2.52 NG/ML 0-4 41 finding [phone] Urine DIP 09/12/2008 In House Lab Leukocytes NEG Neg (607)- - Urine Nitrites NEG Neg Urine pH 5 5-6 Total Protein, Urine NEG Neg Urine Glucose NORM Norm Urine Ketones NEG Neg Urobilinogen NORM Norm Urine Bilirubin NEG Neg Urine Blood NEG Neg Specific [place] N/A Low 1.01-1.02 Laboratory test 09/06/2008 [facility] PSA Screening 3.71 NG/ML 0-4 42 finding [phone] Lipid Profile 09/06/2008 [facility] Triglyceride 146 mg/dL 40-200 (Trig/Chol/HDL) [phone] Cholesterol 157 mg/dL Less Than 200 43 High Density Lipoprotein 36 mg/dL Low 40-60 44 Cholesterol/HDL Ratio 4.36 AVERAGE 1-4.97 Low Density Lipoprotein 92 mg/dL Less Than 100 45 Laboratory test 09/06/2008 [facility] CPK (Creatine 77 U/L 0-200 finding [phone] Kinase) Comp Metabolic 09/06/2008 [facility] Sodium 139 135-145 Panel [phone] mmol/L Potassium 4.3 mmol/L 3.5-5.0 Chloride 100 mmol/L Low 101-111 Co2 (Carbon Dioxide) 31.0 mmol/L 22-32 Anion Gap 8.0 mmol/L 2-11 46 Glucose 87 mg/dL 70-100 47 BUN 15 mg/dL 6-24 Creatinine 0.80 mg/dL 0.50-1.40 One Over Creatinine 1.20 BUN/Creatinine Ratio 18.8 8-20 Calcium 9.7 mg/dL 8.1-9.9 48 Total Protein 6.5 GM/DL 6.2-8.1 Albumin 4.0 GM/DL 3.6-5.4 Globulin 2.5 GM/DL 2-4 Albumin/Globulin Ratio 1.6 1-3 Bilirubin Total 1.2 mg/dL 0.4-1.5 49 Alkaline Phosphatase 71 U/L 39-117 Alt (SGPT) 34 U/L 17-63 Ast (Sgot) 29 U/L 12-42 Urine DIP 09/07/2007 In House Lab Leukocytes NEG Neg (607)- - Urine Nitrites NEG Neg Urine pH 5 5-6 Total Protein, Urine NEG Neg Urine Glucose NORM Norm Urine Ketones NEG Neg Urobilinogen NORM Norm Urine Bilirubin NEG Neg Urine Blood NEG Neg Specific [place] NA Low 1.01-1.02 Comp Metabolic Panel 08/28/2007 [facility] Sodium 141 mmol/L 135-145 [phone] Potassium 3.6 mmol/L 3.5-5.0 Chloride 104 mmol/L 101-111 Co2 (Carbon Dioxide) 31.0 mmol/L 22-32 Anion Gap 6.0 mmol/L 2-11 50 Glucose 101 mg/dL 70-105 BUN 16 mg/dL 6-24 Creatinine 1.0 mg/dL 0.5-1.4 One Over Creatinine 1.00 BUN/Creatinine Ratio 16.0 8-20 Calcium 9.4 mg/dL 8.7-10.2 Total Protein 6.9 GM/DL 6.2-8.1 Albumin 4.1 GM/DL 3.6-5.4 Globulin 2.8 GM/DL 2-4 Albumin/Globulin Ratio 1.5 1-3 Bilirubin Total 1.2 mg/dL 0.4-1.5 Alkaline Phosphatase 81 U/L 39-117 Alt (SGPT) 28 U/L 17-63 Ast (Sgot) 26 U/L 12-42 Laboratory test 08/28/2007 [facility] PSA Screening 2.00 NG/ML 0-4 51 finding [phone] Laboratory test 08/28/2007 [facility] CPK (Creatine 66 U/L 0-200 finding [phone] Kinase) Lipid Profile 08/28/2007 [facility] Triglyceride 148 mg/dL 40-200 (Trig/Chol/HDL) [phone] Cholesterol 150 mg/dL Less Than 200 52 High Density Lipoprotein 35 mg/dL Low 40-60 53 Cholesterol/HDL Ratio 4.29 AVERAGE 1-4.97 Low Density Lipoprotein 85 mg/dL Less Than 100 54 Laboratory test 08/06/2006 [facility] PSA Screening 1.75 NG/ML 0.01-4.0 55 finding [phone] CPK (Creatine Kinase) 95 U/L 0-200 CBC With 08/06/2006 [facility] White Blood 6.0 CUMM 4.8-10.8 Electronic Diff [phone] Count Abs Basophils 0 0-0.2 Abs Eosinophils 0.4 0-0.6 Absolute Neutrophil Count 3.2 1.5-7.7 Abs Lymphs 1.9 1.0-4.8 Abs Mononuclear 0.5 0-0.8 Basophil % 0.7 % 0-2 Hematocrit 45 % 42-52 56 Hemoglobin 15.6 g/dL 14.0-18.0 Eosinophil % 6.5 % High 0-6 Gran % 52.9 % 38-83 Lymph % 31.4 % 20-45 Mean Corpuscular HGB Cone 35 g/dL 32-36 Mean Corpuscular Hemoglob 32 pg High 27-31 Mean Corpuscular Volume 90 um3 80-94 Mononuclear % 8.5 % 1-9 Red Cell Count 4.96 CUMM 4.6-6.2 Redcell Distribution WDTH 13 % 10.5-15 Lipid Profile 08/06/2006 [facility] Cholesterol/HDL 4.14 1-4.97 (Trig/Chol/HDL) [phone] Ratio AVERAGE Cholesterol 145 mg/dL Less Than 200 57 Triglyceride 123 mg/dL 40-200 High Density Lipoprotein 35 mg/dL Low 40-60 58 Low Density Lipoprotein 85 mg/dL Less Than 100 59 Comp Metabolic 08/06/2006 [facility] One Over Creatinine 1.11 Panel [phone] Anion Gap 9.0 mmol/L 2-11 60 Albumin/Globulin Ratio 1.9 1-3 Albumin 4.3 GM/DL 3.6-5.4 Alkaline Phosphatase 55 U/L 39-117 Alt (SGPT) 26 U/L 17-63 Ast (Sgot) 31 U/L 12-42 BUN 14 mg/dL 6-24 Calcium 9.7 mg/dL 8.7-10.2 Chloride 100 mmol/L Low 101-111 Co2 (Carbon Dioxide) 30.0 mmol/L 22-32 Globulin 2.3 GM/DL 2-4 Glucose 103 mg/dL 70-105 Potassium 3.9 mmol/L 3.5-5.0 Sodium 139 mmol/L 135-145 Bilirubin Total 1.3 mg/dL 0.4-1.5 Total Protein 6.6 GM/DL 6.2-8.1 BUN/Creatinine Ratio 15.6 8-20 Creatinine 0.9 mg/dL 0.5-1.4 Lipid Profile 06/06/2005 [facility] [place] Cholesterol 149 mg/dL Less Than 61 (Trig/Chol/HDL) (607)- - 200 Triglyceride 89 mg/dL 40-200 High Density Lipoprotein 36 mg/dL Low 40-60 62 Low Density Lipoprotein 95 mg/dL Less Than 100 63 Cholesterol/HDL Ratio 4.14 AVERAGE 1-4.97 Comp Metabolic Panel 06/06/2005 [facility]-2 One Over Creatinine 1.00 (607)- - Anion Gap 8.0 mmol/L 2-11 64 Albumin/Globulin Ratio 1.6 1-3 Albumin 4.4 GM/DL 3.6-5.4 Alkaline Phosphatase 69 U/L 39-117 Alt (SGPT) 27 U/L 17-63 Ast (Sgot) 27 U/L 12-42 BUN 14 mg/dL 6-24 Calcium 10.0 mg/dL 8.7-10.2 Chloride 104 mmol/L 101-111 Co2 (Carbon Dioxide) 29.0 mmol/L 22-32 Globulin 2.8 GM/DL 2-4 Glucose 99 mg/dL 70-105 Potassium 3.5 mmol/L 3.5-5.0 Sodium 141 mmol/L 135-145 Bilirubin Total 1.0 mg/dL 0.4-1.5 Total Protein 7.2 GM/DL 6.2-8.1 BUN/Creatinine Ratio 14.0 8-20 Creatinine 1.0 mg/dL 0.5-1.4 Laboratory test 06/06/2005 [facility] [place] PSA Screening 1.6 NG/ML 0-4 65 finding (607)- - CBC With Electronic 06/06/2005 [facility] [place] White Blood Count 4.6 CUMM Low 4.8- 10.8 Diff (607)- - Abs Basophils 0 0-0.2 Abs Eosinophils 0.2 0-0.6 Absolute Neutrophil Count 2.0 1.5-7.7 Abs Lymphs 2.0 1.0-4.8 Abs Mononuclear 0.4 0-0.8 Basophil % 0.6 % 0-2 Hematocrit 46 % 42-52 Hemoglobin 15.9 g/dL 14.0-18.0 Eosinophil % 4.7 % 0-6 Gran % 42.5 % 38-83 Lymph % 42.7 % 20-45 Mean Corpuscular HGB Cone 35 g/dL 32-36 Mean Corpuscular Hemoglob 32 pg High 27-31 Mean Corpuscular Volume 91 um3 80-94 Mean Platelet Volume 8.6 um3 7.4-10.4 Mononuclear % 9.5 % High 1-9 Platelet Count 296 CUMM 150-450 Red Cell Count 5.00 CUMM 4.6-6.2 Redcell Distribution WDTH 13 % 10.5-15 Lipid Panel 06/27/2004 [facility] [place] Cholesterol, Total 183 (607)- - Cholesterol/HDL Ratio 3.89 HDL 47 Low Density Lipoprotein 102 High Triglycerides 170 Laboratory test finding 06/27/2004 [facility] [place] PSA - Prostate Specific 1.6 (607)- - Antige Urine DIP 05/18/2003 In House Lab Leukocytes NEG Neg (607)- - Urine Nitrites NEG Neg Urine pH 5 5-6 Total Protein, Urine NL Neg Urine Glucose NL Norm Urine Ketones NL Neg Urobolinogen NL Norm Urine Bilirubin NL Neg Urine Blood NL Neg Specific [place] N/A Low 1.01-1.02 Urine DIP 03/24/2002 In House Lab Leukocytes NEG Neg (607)- - Urine Nitrites NEG Neg Urine pH 5 5-6 Total Protein, Urine NL Neg Urine Glucose NL Norm Urine Ketones NL Neg Urobolinogen NL Norm Urine Bilirubin NL Neg Urine Blood NL Neg Specific [place] N/A Low 1.01-1.02 Laboratory test finding 09/05/2000 Other Pathology Report ATYP NEVUS-BACK 1 Desirable: <150 Borderline High: 150-199 High: 200-499 Very High: >500 2 Desirable: <200 Borderline High: 200-239 High: >239 3 Low: <40 Desirable: 40-60 High: >60 4 Desirable: <100 Near Optimal: 100-129 Borderline High: 130-159 High: 160-189 Very High: >189 5 Because ethnic data is not always readily [...] 15-29 5 Kidney failure <15 (or dialysis) 6 Because ethnic data is not always readily [...] 15-29 5 Kidney failure <15 (or dialysis) 7 Desirable <150 Borderline high 150-199 High 200-499 Very High >500 8 Desirable <200 Borderline high 200-239 High >239 9 Low <40 Desirable: 40-60 High: >60 10 Desirable: <100 mg/dL Near Optimal: 100-129 mg/dL Borderline High: 130-159 mg/dL High: 160-189 mg/dL Very High: >189 mg/dL 11 Desirable <150 Borderline high 150-199 High 200-499 Very High >500 12 Desirable <200 Borderline high 200-239 High >239 13 Low <40 Desirable: 40-60 High: >60 14 Desirable: <100 mg/dL Near Optimal: 100-129 mg/dL Borderline High: 130-159 mg/dL High: 160-189 mg/dL Very High: >189 mg/dL 15 Because ethnic data is not always readily [...] 15-29 5 Kidney failure <15 (or dialysis) 16 Because ethnic data is not always readily [...] 15-29 5 Kidney failure <15 (or dialysis) 17 Desirable <150 Borderline high 150-199 High 200-499 Very High >500 18 Desirable <200 Borderline high 200-239 High >239 19 Low <40 Desirable: 40-60 High: >60 20 Desirable: <100 mg/dL Near Optimal: 100-129 mg/dL Borderline High: 130-159 mg/dL High: 160-189 mg/dL Very High: >189 mg/dL 21 FASTING 22 Because ethnic data is not always readily [...] 15-29 5 Kidney failure <15 (or dialysis) 23 FASTING 24 Desirable <150 Borderline high 150-199 High 200-499 Very High >500 25 Desirable <200 Borderline high 200-239 High >239 26 Low <40 Desirable: 40-60 High: >60 27 Desirable <100 Near Optimal 100-129 Borderline high 130-159 High 160-189 Very High >189 28 Because ethnic data is not always readily [...] 15-29 5 Kidney failure <15 (or dialysis) 29 HDL Interpretation: Undesirable: High Risk: Less than 40 MG/DL Desirable: Low Risk: Greater than 60 MG/DL 30 LDL Interpretation: Low Risk Optimal Level: LDL Less than 100 MG/DL Near or Above Optimal: LDL 100-129 MG/DL Borderline High Risk: LDL 130-159 MG/DL High Risk: LDL 160-189 MG/DL Very High Risk: LDL Greater than 189 MG/DL 31 Anion gap measurement may be of limited value in the presence of any alkalosis, especially in a combined acid base disorder. . 32 A metabolite of Naproxen, O-desmethylnaproxen, has been shown to interfere with the Jendrassik-[place] method for measuring total bilirubin. Samples from patients who have taken Naproxen have shown spurious elevation in total bilirubin levels. 33 Because ethnic data is not always readily [...] 15-29 5 Kidney failure <15 (or dialysis) 34 * SERUM LEVELS OF PSA MEASURED USING THE [employer] ACCESS HYBRITECH IMMUNOASSAY SHOULD NOT BE INTERPRETED ABSOLUTE EVIDENCE OF THE PRESENCE OR ABSENCE OF DISEASE. THE PSA VALUE SHOULD BE USED IN CONJUNCTION WITH OTHER PERTINENT CLINICAL DIAGNOSTIC PROCEDURES. The values obtained with different assay methods or kits cannot be used interchangeably. 35 CHOLESTEROL INTERPRETATION: Desirable: Less than 200 MG/DL Borderline-High Risk: 200-239 MG/DL High-Risk: 240 MG/DL and over 36 HDL INTERPRETATION: Undesirable: High Risk: Less than 40 MG/DL Desirable: Low Risk: Greater than 60 MG/DL 37 LDL INTERPRETATION: Low Risk Optimal Level: LDL Less than 100 MG/DL Near or Above Optimal: LDL 100-129 MG/DL Borderline High Risk: LDL 130-159 MG/DL High Risk: LDL 160-189 MG/DL Very High Risk: LDL Greater than 189 MG/DL 38 CHOLESTEROL INTERPRETATION: Desirable: Less than 200 MG/DL Borderline-High Risk: 200-239 MG/DL High-Risk: 240 MG/DL and over 39 HDL INTERPRETATION: Undesirable: High Risk: Less than 40 MG/DL Desirable: Low Risk: Greater than 60 MG/DL 40 LDL INTERPRETATION: Low Risk Optimal Level: LDL Less than 100 MG/DL Near or Above Optimal: LDL 100-129 MG/DL Borderline High Risk: LDL 130-159 MG/DL High Risk: LDL 160-189 MG/DL Very High Risk: LDL Greater than 189 MG/DL 41 * SERUM LEVELS OF PSA MEASURED USING THE [employer] ACCESS HYBRITECH IMMUNOASSAY SHOULD NOT BE INTERPRETED ABSOLUTE EVIDENCE OF THE PRESENCE OR ABSENCE OF DISEASE. THE PSA VALUE SHOULD BE USED IN CONJUNCTION WITH OTHER PERTINENT CLINICAL DIAGNOSTIC PROCEDURES. 42 * SERUM LEVELS OF PSA MEASURED USING THE [employer] ACCESS HYBRITECH IMMUNOASSAY SHOULD NOT BE INTERPRETED ABSOLUTE EVIDENCE OF THE PRESENCE OR ABSENCE OF DISEASE. THE PSA VALUE SHOULD BE USED IN CONJUNCTION WITH OTHER PERTINENT CLINICAL DIAGNOSTIC PROCEDURES. 43 CHOLESTEROL INTERPRETATION: Desirable: Less than 200 MG/DL Borderline-High Risk: 200-239 MG/DL High-Risk: 240 MG/DL and over 44 HDL INTERPRETATION: Undesirable: High Risk: Less than 40 MG/DL Desirable: Low Risk: Greater than 60 MG/DL 45 LDL INTERPRETATION: Low Risk Optimal Level: LDL Less than 100 MG/DL Near or Above Optimal: LDL 100-129 MG/DL Borderline High Risk: LDL 130-159 MG/DL High Risk: LDL 160-189 MG/DL Very High Risk: LDL Greater than 189 MG/DL 46 Anion gap measurement may be of limited value in the presence of any alkalosis, especially in a combined acid base disorder. . 47 Note change in reference range as of 11/26/07. The change was based on recommendations from the [place] [employer]. 48 Please note change in reference range effective 07 . 49 A metabolite of Naproxen, O-desmethylnaproxen, has been shown to interfere with the Jendrassik-[place] method for measuring total bilirubin. Samples from patients who have taken Naproxen have shown spurious elevation in total bilirubin levels. 50 Anion gap measurement may be of limited value in the presence of any alkalosis, especially in a combined acid base disorder. . 51 * SERUM LEVELS OF PSA MEASURED USING THE [employer] ACCESS HYBRITECH IMMUNOASSAY SHOULD NOT BE INTERPRETED ABSOLUTE EVIDENCE OF THE PRESENCE OR ABSENCE OF DISEASE. THE PSA VALUE SHOULD BE USED IN CONJUNCTION WITH OTHER PERTINENT CLINICAL DIAGNOSTIC PROCEDURES. 52 CHOLESTEROL INTERPRETATION: Desirable: Less than 200 MG/DL Borderline-High Risk: 200-239 MG/DL High-Risk: 240 MG/DL and over 53 HDL INTERPRETATION: Undesirable: High Risk: Less than 40 MG/DL Desirable: Low Risk: Greater than 60 MG/DL 54 LDL INTERPRETATION: Low Risk Optimal Level: LDL Less than 100 MG/DL Near or Above Optimal: LDL 100-129 MG/DL Borderline High Risk: LDL 130-159 MG/DL High Risk: LDL 160-189 MG/DL Very High Risk: LDL Greater than 189 MG/DL 55 * SERUM LEVELS OF PSA MEASURED USING THE [employer] ACCESS HYBRITECH IMMUNOASSAY SHOULD NOT BE INTERPRETED ABSOLUTE EVIDENCE OF THE PRESENCE OR ABSENCE OF DISEASE. THE PSA VALUE SHOULD BE USED IN CONJUNCTION WITH OTHER PERTINENT CLINICAL DIAGNOSTIC PROCEDURES. 56 Platelet Clumps 57 Classification: Desirable . 58 Classification: Low . 59 CALCULATED LDL APPROXIMATES THE VALUE OF A DIRECT LDL MEASUREMENT. Classification: Optimal Level . 60 Anion gap measurement may be of limited value in the presence of any alkalosis, especially in a combined acid base disorder. . 61 Classification: Desirable . 62 Classification: Low . 63 CALCULATED LDL APPROXIMATES THE VALUE OF A DIRECT LDL MEASUREMENT. Classification: Optimal Level . 64 Anion gap measurement may be of limited value in the presence of any alkalosis, especially in a combined acid base disorder. . 65 * SERUM LEVELS OF PSA MEASURED USING THE [employer] ACCESS HYBRITECH IMMUNOASSAY SHOULD NOT BE INTERPRETED ABSOLUTE EVIDENCE OF THE PRESENCE OR ABSENCE OF DISEASE. THE PSA VALUE SHOULD BE USED IN CONJUNCTION WITH OTHER PERTINENT CLINICAL DIAGNOSTIC PROCEDURES. Procedures Date Code Description Status 03/24/2002 47553 EKG, at Least 12 Leads w/Interpretation and Report Completed Encounters Type Date Location Provider Dx Diagnosis Office Visit 12/19/2017 Main Office Franck Anglin, Z00.00 Encntr for general 8:00a MD adult medical exam w/o abnormal findings E78.5 Hyperlipidemia, unspecified I10 Essential (primary) hypertension Office Visit 12/16/2016 8:00a Main Office Franck Anglin Z00.00 Encntr for general adult medical exam w/o abnormal findings I10 Essential (primary) hypertension E78.5 Hyperlipidemia, unspecified Office Visit 12/25/2015 1:00p Main Office Franck Anglin Z00.00 Encntr for general adult medical exam w/o abnormal findings I10 Essential (primary) hypertension E78.0 Pure hypercholesterolemia Office Visit 12/21/2014 8:00a Main Office Stan Royal Essential (primary) hypertension Z00.00 Encntr for general adult medical exam w/o abnormal findings V03.82 Streptococcus Pneumoniae Vaccination Spec Other V04.81 Need For Prophylactic Vaccination & Inoculation/Influenza Office Visit 09/16/2013 8:30a Main Office Vielka Sanchez V70.0 Examination General Rocio M.D. Medical Routine AT [facility] 401.9 Hypertension Unspec 272.0 Hypercholesterolemia Pure 715.96 Osteoarthrosis Unspec Genlzd Or Localzd Lower Leg Office Visit 08/07/2012 9:00a Main Office Vielka Sanchez V70.0 Examination General Rocio M.D. Medical Routine AT [facility] Care Facility 401.9 Hypertension Unspec 272.0 Hypercholesterolemia Pure 715.96 Osteoarthrosis Unspec Genlzd Or Localzd Lower Leg Office Visit 08/02/2011 9:00a Main Office Vielka Sanchez V70.0 Examination General Rocio M.D. Medical Routine AT [facility] Care Facility 401.9 Hypertension Unspec 272.0 Hypercholesterolemia Pure V76.9 Screening Malignant Neoplasm Unspec V06.1 Rphsxtfwly-Gtkyzmi-Depklefl Combined (DTaP) Office Visit 09/18/2009 1:30p Main Office Georgiana Mcfarlane, 401.9 Hypertension Unspec M.D., R.D. 272.0 Hypercholesterolemia Pure 600.00 Hypertrophy Prostate W/O Urinary Obstruction & Other Luts V70.0 Examination General Medical Routine AT Health Care Facility Office Visit 09/12/2008 8:30a Main Office Georgiana Maeve, V70.0 Examination General M.D., R.D. Medical Routine AT [facility] 401.9 Hypertension Unspec 272.0 Hypercholesterolemia Pure 600.00 Hypertrophy Prostate W/O Urinary Obstruction & Other Luts Office Visit 09/07/2007 1:45p Main Office Keny Flores 401.9 Hypertension Unspec M.D. 272.0 Hypercholesterolemia Pure V70.0 Examination General Medical Routine AT [facility] 600.00 Hypertrophy Prostate W/O Urinary Obstruction & Other Luts V76.9 Screening Malignant Neoplasm Unspec Office Visit 08/13/2006 1:45p Main Office Keny Flores 401.9 Hypertension Unspec M.D. 272.0 Hypercholesterolemia Pure V70.0 Examination General Medical Routine AT Health Care Facility V76.9 Screening Malignant Neoplasm Unspec Office Visit 06/12/2005 12:45p Main Office Keny Flores V70.0 Examination M.D. General Medical Routine AT [facility] Care Facility 401.9 Hypertension Unspec 272.0 Hypercholesterolemia Pure 600.00 Hypertrophy Prostate W/O Urinary Obstruction & Other Luts 600.0 Hypertrophy Benign Of Prostate V76.9 Screening Malignant Neoplasm Unspec Office Visit 05/21/2004 1:30p Main Office Keny Flores, 401.9 Hypertension Unspec M.D. 600.00 Hypertrophy Prostate W/O Urinary Obstruction & Other Luts 600.0 Hypertrophy Benign Of Prostate V76.9 Screening Malignant Neoplasm Unspec 272.0 Hypercholesterolemia Pure V70.0 Examination General Medical Routine AT Health Care Facility Office Visit 09/19/2003 Main Office Keny Flores, 272.0 Hypercholesterolemia Pure 3:45p M.D. 401.9 Hypertension Unspec Office Visit 05/18/2003 2:30p Main Office Keny Flores V70.0 Examination M.D. General Medical Routine AT [facility] Care Facility 272.0 Hypercholesterolemia Pure 600.0 Hypertrophy Benign Of Prostate 401.9 Hypertension Unspec V76.9 Screening Malignant Neoplasm Unspec Office Visit 03/24/2002 1:45p Main Office Keny Flores V70.0 Examination M.D. General Medical Routine AT [facility] Care Facility 272.0 Hypercholesterolemia Pure 600.0 Hypertrophy Benign Of Prostate 228.01 Hemangioma Skin & Subcutaneous Tissue Plan of Treatment Future Appointment(s):12/04/2018 1:00 pm - Franck Anglin MD at Main [id number] - Franck Anglin, [id number] Pain in right kneeZ01.818 Encounter for other preprocedural examinationComments:The patient is estimated to be LOW risk for an INTERMEDIATE risk surgery. There are no medications that need to be adjusted prior to surgery.No chronic medical issues need to be optimized prior to the operation. I advised him to stop fish oil now (~2 weeks prior to surgery) and stop ibuprofen several days prior to the operation. There were no factors identified to delay an elective procedure. We would recommend proceeding with the planned procedure with the usual level of care.
[2018-09-22] MEDS ORDERED: Dexamethasone IV* 4 MG/ML 1 ML (4 MG) ONE (09:28)
[2018-09-22] MEDS ORDERED: Gabapentin CAP(*) 300 MG ONE (09:28)
[2018-09-22] MEDS ORDERED: celeCOXIB CAP* 200 MG ONE (09:28)
[2018-09-22] MEDS ORDERED: Buffered Lidocaine 1% SYRIN* 1 ML/SYRINGE INTRADERM ONE (09:29)
[2018-09-22] MEDS ORDERED: Famotidine IV* 10 MG/ML 2 ML (20 mg) ONE (09:29)
[2018-09-22] MEDS ORDERED: ceFAZolin 2 GM in NS PREMIX(*) 2 GM/100 ML BAG IVPB ONE (09:29)
[2018-09-22] MEDS ORDERED: KETAMINE HCL* 50 MG/ML 10 ML VIAL ONE (10:21)
[2018-09-22] MEDS ORDERED: Midazolam* 1 MG/ML 5 ML VIAL (5 MG) ONE (10:21)
[2018-09-22] MEDS ORDERED: Ondansetron INJ* 2 MG/ML VIAL ONE (10:21)
[2018-09-22] MEDS ORDERED: Propofol* 10 MG/ML 20 ML BTL ONE (10:21)
[2018-09-22] MEDS ORDERED: ROPIVACAINE 5 MG/ML 30 ML BTL (0.5%) ONE ×2 (10:40→11:04)
[2018-09-22] MEDS ORDERED: Bupivacaine 0.5% SDV PF* 30ML VIAL ONE (11:24)
[2018-09-22] MEDS ORDERED: Glycopyrrolate IV* 0.2 MG/ML 1 ML VIAL ONE (12:12)
[2018-09-22] MEDS ORDERED: Atropine 1MG/ML INJ* 1 ML VIAL ONE (12:16)
[2018-09-22] MEDS ORDERED: Ondansetron INJ* 2 MG/ML VIAL IV PRN ×2 (12:31→14:21)
[2018-09-22] MEDS ORDERED: HYDROmorphone INJ1* 1 MG/ML SYRINGE IV PRN (12:31)
[2018-09-22] MEDS ORDERED: DiMENhydriNATE IV* 50 MG/ML VIAL IV PUSH PRN (12:31)
[2018-09-22] MEDS ORDERED: fentaNYL* 50 MCG/ML 2 ML VIAL (100 MCG VIAL) IV PRN (12:31)
[2018-09-22] MEDS ORDERED: Naloxone* 0.4 MG/ML 1 ML VIAL IV PRN (12:31)
[2018-09-22] MEDS ORDERED: Acetaminophen IV 1GM/100ML * 100 ML ONE (13:57)
[2018-09-22] MEDS ORDERED: Ondansetron TAB* 4 MG PO PRN (14:21)
[2018-09-22] MEDS ORDERED: diPHENhydraMINE IV* 50 MG/ML 1 ml VIAL (BENADRYL) IV PRN (14:21)
[2018-09-22] MEDS ORDERED: Polyethylene Glycol 3350* 17 GM PACKET PO PRN (14:21)
[2018-09-22] MEDS ORDERED: Bisacodyl SUPP* 10 MG SUPP PR PRN (14:21)
[2018-09-22] MEDS ORDERED: traMADol TAB* 50 MG PO PRN (14:21)
[2018-09-22] MEDS ORDERED: Magnesium Hydroxide LIQ* 30 ML UDC PO PRN (14:21)
[2018-09-22] MEDS ORDERED: oxyCODONE/Acetamin 5/325 MG* TAB PO PRN (14:21)
[2018-09-22] MEDS ORDERED: Morphine INJ* 2 MG/ML 1 ML SYRINGE (TWO MG - NEW SYRINGE VERSION) IV PRN (14:21)
[2018-09-22] MEDS ORDERED: Cyclobenzaprine TAB* 10 MG PO PRN (14:21)
[2018-09-22] MEDS: Lactated Ringers 1000 ML Bag* 1,000 ML IV SCH (16:13)
--- NOTE | 2018-09-22 17:18 | PN ---
Progress Note - Progress Note Date of Service: 09/22/18 Note: Patient seen at bedside s/p right total knee arthroplasty. His pain is well managed. Feeling well. Sensation intact distally. +DF right ankle.
--- NOTE | 2018-09-22 17:33 | CONSULT ---
Consult Consult: HOSPITALIST CONSULTATION: Requesting Provider: Dr. Diamond Reason for Consultation: Medical Co-management HPI: Mr Perez is a 68yo M who has a h/o HTN and HLD as well as advanced osteoarthritis of the R knee that failed conservative management who was admitted following an elective R TKA. He states he is feeling well currently. He denies any pain in the knee. No nausea. He was not constipated prior to the operation. PMHx: HTN, HLD, h/o subdural hematoma PSHx: R TKA, appendectomy All: NKDA Meds: current medication list reviewed FamHx: + for cancer SocHx: No tobacco, 1 EtOH beverage/day. , lives with his . ROS: complete 11 system review of systems is obtained, pertinent positives/ negatives as per HPI. PE: 118/62 57 14 97.3 96 gen: middle aged male lying in bed, NAD HEENT: EOMI, oropharynx clear and moist Card: Nl S1 S2 bradycardic and regular Lung: CTA anteriorly Abd: BS+ soft, NT/ND Musculo: cryo unit on R knee, no edema Neuro: UE strength normal, LE strength not tested Psych: A&Ox3, normal affect A/P: Mr Perez is a 68 yo M who has a h/o HTN and HLD who is now POD#0 elective R TKA who is seen for medical co-management. 1. R TKA: management including DVT prophylaxis per orthopedics 2. HTN: BP under excellent control. Continue metoprolol 50mg qHS, lisinopril 10mg qHS and HCTZ 25mg qAM. Will add hold parameters to metoprolol dosing. 3. HLD: continue lipitor (substitution for simvastatin). 4. DVT-P: eliquis to start AM 09/23 5. Full code
[2018-09-22] MEDS ORDERED: Lisinopril TAB* 10 MG PO SCH (18:00)
[2018-09-22] MEDS: oxyCODONE/Acetamin 5/325 MG* TAB PO PRN (18:19)
--- NOTE | 2018-09-22 19:55 | OP ---
Operative Report - Blank - Operative Report Date of Operation: 09/22/18 Note: BLANKA ANN 1950 Date of Surgery: 09/22/18 Anastasia Diamond MD [place] Supervisor: Archie ELLINGTON did help throughout the procedure with preparation of the knee, wound retraction, manipulation of the knee, and wound closure. Anesthesiologist: Daryl Ramos MD Anesthesia Type: Spinal Preoperative Diagnosis: Right severe degenerative osteoarthritis of the knee Postoperative Diagnosis: As above Procedure Performed: Right Total Knee Arthroplasty Tourniquet time: 47 minutes Complications: None Specimen: Bone and cartilage from the right knee joint sent to pathology. Hardware Used: Cemented Santiago [employer] Nephew total knee hardware was used - For the femur a size 6 right narrow legion posterior stabilized femoral component, for the tibia a size 5 right gustavo II tibial baseplate, for the insert a size 9 mm 5-6 posterior stabilized articular polyethylene insert, and for the patella a size 35 3-peg all poly patella. Brief History/Indication: BLANKA ANN was known in clinic and had a history of severe right knee pain and swelling. He failed conservative treatment with anti-inflammatories, pain pills, intra-articular injections and physical therapy. He elected to undergo right total knee arthroplasty due to continued pain and decreased quality of life. Radiographs showed severe end stage osteoarthritis of the knee with bone on bone contact. Informed consent was obtained from the patient. He understood the risks of surgery included but were not limited to: bleeding, infection, damage to nearby structures, intraoperative fracture, nerve palsy, failure of the hardware, early loosening, knee stiffness or loss of motion, anesthesia complications, stroke, heart attack , blood clot and . He wished to proceed. Intra-Operative Findings: Intraoperatively the patient was noted to have severe loss of cartilage in all 3 compartments of the knee. He had preoperative flexion contracture of 20 degrees. Description of the Procedure: BLANKA ANN was identified in the preanesthesia unit. His right knee was marked as the correct operative side. Informed consent was signed and placed in the chart. The patient was taken to the operating room and placed under anesthesia without complication. A madrigal catheter was placed. A tourniquet was placed on the right thigh. The right lower extremity was prepped and draped in the usual sterile fashion. Preoperative time-out was made to correctly identify the patient, side and site. Appropriate intraoperative antibiotics were given within one hour of incision. Tourniquet was inflated. A midline incision was made and carried sharply down to the extensor mechanism. A new 10 blade was used to make a standard medial parapatellar arthrotomy. The patella was subluxed laterally. Electrocautery was used to dissect soft tissue off the superomedial tibia to the midsagittal plane. The knee was flexed up. The anterior horn of the lateral meniscus and the ACL were sharply incised. A drill was used to enter the distal femur. The intramedullary distal femoral cutting guide was pinned on the distal femur. The oscillating saw was used to make the distal femoral cut. The external rotation guide was pinned on the distal femur and the distal femur was sized to a size 6. The size 6 multi-cutting jig was pinned on the distal femur. The oscillating saw was used to make the appropriate 4 chamfer cuts. Next the PCL was completely released. The extramedullary tibial cutting guide was pinned on the proximal tibia and the oscillating saw was used to make the proximal tibial cut perpendicular to the mechanical axis of the tibia. The bone was carefully removed. The knee was brought out into full extension. The spacer block was placed and had excellent fit with the knee in full extension. The medial and lateral ligaments were well balanced. The flexion and extension gaps were well balanced. The knee was flexed up. Lamina personal finance instructor was placed both medially and laterally. Any remaining meniscus was removed with electrocautery. Curved osteotome was used to remove any posterior osteophytes. The tibial tray and drop leelee were placed and confirmed a satisfactory tibial cut. The size 6 right narrow femoral trial was impacted onto the distal femur. This trial had excellent fit and stability. The box for the posterior stabilized implant was prepared using a box cut osteotome and a reamer. Next a tibial tray trial and 9 mm insert trial was placed. The knee was taken through a range of motion and had full extension to 130 degrees of flexion. Patellofemoral tracking was satisfactory. The patella was inverted and sized to a size 35. Three peg holes were drilled through the size 35 drill guide. The trial patella was placed and the knee was taken through a range of motion. There was satisfactory patellofemoral tracking. All trials were removed. The tibia was subluxed anteriorly and sized to a size 5. The proximal tibial was prepared with a size 5 keel punch. All bony cut surfaces were irrigated with sterile saline and dried. Final implants were cemented into place starting with the tibia, followed by the femur, and last the patella. A 9 mm insert trial was placed and the knee was brought into full extension. Tourniquet was turned down and the knee was copiously irrigated with sterile saline. Electrocautery was used to obtain meticulous hemostasis. Once the cement had fully cured, the insert trial was removed. Any excess cement was removed from around the hardware and capsule. Final insert chosen was a 9 mm posterior stabilized Gustavo II articular insert size 5-6. Stability of the insert was checked and noted to be stable. The extensor mechanism was closed using number 1 vicryls. The rest of the incision was closed in a layered fashion using 0 and 2-0 vicryls. The skin was closed using 3-0 nylon suture. Sterile xeroform, 4x4s and webril were used to cover the incision. Mundo wrap and cold pack were used to cover the dressings. The patients anesthesia was reversed without difficulty. He was taken to the PACU in stable condition. Intended weight-bearing will be as tolerated.
[2018-09-22] MEDS: ceFAZolin 1 GM ADVAN(*) 1 GM in NS 0.9% 50 ML* 50 ML IVPB SCH (20:34)
[2018-09-22] MEDS: Magnesium Hydroxide LIQ* 30 ML UDC PO SCH (20:35)
[2018-09-22] MEDS: Docusate CAP* 100 MG PO SCH (20:35)
[2018-09-22] MEDS: oxyCODONE TAB* 5 MG TAB PO PRN (20:36)
[2018-09-22] MEDS ORDERED: Metoprolol Tartrate TAB* 50 mg PO SCH ×2 (21:00)
[2018-09-22] MEDS: Acetaminophen TAB* 325 MG PO SCH (22:51)
[2018-09-23] MEDS: Lactated Ringers 1000 ML Bag* 1,000 ML IV SCH (02:42)
[2018-09-23] MEDS: ceFAZolin 1 GM ADVAN(*) 1 GM in NS 0.9% 50 ML* 50 ML IVPB SCH ×2 (03:23→11:50)
[2018-09-23] MEDS: oxyCODONE/Acetamin 5/325 MG* TAB PO PRN ×4 (04:44→16:42)
[2018-09-23] MEDS: Acetaminophen TAB* 325 MG PO SCH ×2 (05:31→13:38)
[2018-09-23 06:53] LABS: Hematocrit 35 % (42-52); Hemoglobin 12.5 g/dL (14.0-18.0); Mean Platelet Volume 8.8 fL (7.4-10.4); Platelet Count 218 10^3/uL (150-450)
[2018-09-23 07:03] LABS: BUN/Creatinine Ratio 23.4 (8-20); Calcium 9.4 mg/dL (8.6-10.3); EGFR African American 82.9 (>60); EGFR Non-African American 68.5 (>60); Potassium 4.5 mmol/L (3.5-5.0)
[2018-09-23] MEDS: Docusate CAP* 100 MG PO SCH (08:35)
[2018-09-23] MEDS: Magnesium Hydroxide LIQ* 30 ML UDC PO SCH (08:35)
[2018-09-23] MEDS ORDERED: Hydrochlorothiazide TAB* 25 MG PO SCH (09:00)
[2018-09-23] MEDS ORDERED: Atorvastatin* 40 MG TAB PO SCH (09:00)
--- NOTE | 2018-09-23 09:38 | PN ---
Progress Note - Progress Note Date of Service: 09/23/18 SOAP: Subjective: []Patient seen and examined at bedside today. He feels very well with 2/10 right knee pain. Denies CP, SOB, dizziness, nausea, history of DVT or PE. Objective: []Gen: Appears well, NAD RLE: Right knee dressing CDI, thigh soft, DF/PF intact, DP2+, sensation intact to light touch distally, capillary refill less than two seconds distally. Calves supple and nontender without erythema, edema or palpable cords Assessment: []POD 1 SP RTK Plan: []WBAT PT/OT Has yet to work with PT today, potential DC this afternoon if goals met and feeling well Eliquis 2.5 mg po BID x 30 days post op If DCs today will change dressing prior to leaving Vital Signs Temp 97.9 F 09/23/18 07:23 Pulse 48 09/23/18 07:23 Resp 18 09/23/18 09:18 BP 109/55 09/23/18 07:23 Pulse Ox 94 09/23/18 08:00 Intake & Output 09/22/18 09/23/18 09/23/18 18:59 06:59 18:59 Intake Total 1700 2370 Output Total 100 800 Balance 1600 1570 Weight 186 lb Intake: IV Fluids 1700 990 LR 1700 990 IVPB 100 ABX - CEFAZOLIN 100 Oral 1280 Output: Urine 100 Jacobs 800 Other: # Bowel Movements 0 Laboratory Last Values Hgb 12.5 g/dL (14.0-18.0) L 09/23/18 06:17 Hct 35 % (42-52) L 09/23/18 06:17 Plt Count 218 10^3/uL (150-450) 09/23/18 06:17 MPV 8.8 fL (7.4-10.4) 09/23/18 06:17 Sodium 138 mmol/L (135-145) 09/23/18 06:17 Potassium 4.5 mmol/L (3.5-5.0) 09/23/18 06:17 Chloride 103 mmol/L (101-111) 09/23/18 06:17 Carbon Dioxide 28 mmol/L (22-32) 09/23/18 06:17 Anion Gap 7 mmol/L (2-11) 06/19/19 06:17 BUN 25 mg/dL (6-24) H 09/23/18 06:17 Creatinine 1.07 mg/dL (0.67-1.17) 09/23/18 06:17 Est GFR ( Amer) 82.9 (>60) 09/23/18 06:17 Est GFR (Non-Af Amer) 68.5 (>60) 09/23/18 06:17 BUN/Creatinine Ratio 23.4 (8-20) H 09/23/18 06:17 Glucose 127 mg/dL (70-100) H 09/23/18 06:17 Calcium 9.4 mg/dL (8.6-10.3) 09/23/18 06:17
[2018-09-23] MEDS: oxyCODONE TAB* 5 MG TAB PO PRN ×2 (10:25→14:47)
[2018-09-23 15:34] VITALS: BP 138/66
--- NOTE | 2018-09-23 15:59 | DS ---
Orthopedic Discharge Summary - Discharge Summary DC to home with outpatient physical therapy Date of Admission:09/22/18 Date of Discharge: 09/23/18 Date of Surgery: 09/22/18 Attending Orthopedic Provider: Dr Diamond Pre-operative Diagnosis: right knee osteoarthritis Operative Procedure: right total knee replacement Disposition of Patient: home Condition of Patient: stable History: BLANKA ANN is a 68 year old M with years of increasingly severe right knee pain. Patient has failed conservative management and has elected to undergo a right total knee replacement Hospital Course: BLANKA was admitted to [facility] on 09/22/18. Patient underwent a right total knee replacement without complication followed by a brief recovery in PACU and transfer to the Short Stay Surgical Unit in stable condition. Our hospitalist service, physical therapy and occupational therapy also participated in this patients care. Post-op day 1: patient was alert and in no acute distress. Dressing was changed and incision clean, dry and intact. Operative extremity dorsiflexion and plantarflexion intact, sensation intact to light touch distally, DP2+. Patient was deemed to be medically and orthopedically stable for discharge. Physical therapy goals were met. Home Medications Medication Instructions Recorded Confirmed Type Acetaminophen Tylenol 650 mg PO Q6H PRN 09/11/18 09/22/18 History Cholecalciferol TAB* [Vitamin D 1,000 unit PO QAM 09/11/18 09/22/18 History TAB*] Hydrochlorothiazide TAB* 25 mg PO QAM 09/11/18 09/22/18 History [Hydrodiuril TAB*] Lisinopril 10 mg PO QPM 09/11/18 09/22/18 History Metoprolol Tartrate [Lopressor] 50 mg PO BEDTIME 09/11/18 09/22/18 History Multivitamin [Multivitamins] 1 cap PO QAM 09/11/18 09/22/18 History Eros-3 Fatty Acids/Fish Oil [Fish 1 tab PO BID 09/11/18 09/22/18 History Oil 1,000 mg Softgel] Simvastatin 80 mg PO QAM 09/11/18 09/22/18 History Ubidecarenone [Coq-10] 30 mg PO BID 09/11/18 09/22/18 History Acetaminophen TAB* [Tylenol TAB*] 975 mg PO Q8HR tab 09/23/18 Rx Apixaban* [Eliquis*] 2.5 mg PO BID #60 tab 09/23/18 Rx Docusate CAP* [Colace Cap*] 100 mg PO BID #90 cap 09/23/18 Rx oxyCODONE/Acetamin 5/325 MG* 1 tab PO Q4H PRN tab 09/23/18 Rx [Percocet 5/325 TAB*] oxyCODONE/Acetamin 5/325 MG* 2 tab PO Q4H PRN #70 tab MDD 10 09/23/18 Rx [Percocet 5/325 TAB*] Discharge Instructions following Orthopedic Surgery: Activity: * Weight Bearing as tolerated * Continue physical therapy and occupational therapy exercises as shown * Outpatient physical therapy Wound care: * OK to shower on post-op day 3, no bathing, swimming, or submerging wound. * Use gentle soap, pat dry. Cover with gauze, OMER wrap or tape. Call Orthopedic office for: * Increased drainage * Redness * Increased pain * Fever Go to ER with shortness of breath or chest pain. Diet: * Regular diet * Increase fluids and fiber to prevent constipation. * Continue to use stool softeners, call office if no bowel motion within 48 hours. Medications See Home Medication List in your packet for medications that you should take after discharge. DVT Prophylaxis: Eliquis Dosin.5 mg, 1 tab every 12 hours x 30 days. This medication increases bleeding tendency Pain Control: Percocet Dosin/325 mg 1-2 tabs by mouth every 4-6 hours as needed for pain. Maximum of 10 tabs per day. Hold for sedation Please note that Percocet contains Tylenol (acetaminophen). Maximum daily dose of Tylenol is 4000 mg from all sources. Antibiotics are required prior to any dental work. FOLLOW UP: Follow up with [[facility]] Within 10-14 days, call for appointment Please call our office with any questions or concerns ([phone])
[2018-09-23] MEDS ORDERED: Apixaban* 2.5 MG TAB PO SCH (21:00)
== END 2018-09-23 17:00 | disposition home or self-care (01) | DRG 470 ==
LOC: AA 09:03 → SSU 16:14
PROVIDERS: ADMIT Orthopaedic Surgery Adult Reconstructive Orthopaedic Surgery; ATTEND Orthopaedic Surgery Adult Reconstructive Orthopaedic Surgery
PROC: 0SRC0J9 Replacement of Right Knee Joint with Synthetic Substitute, Cemented, Open Approach (ICD-10-PCS; principal; 2018-09-22 12:00)
DX: M17.11 Unilateral primary osteoarthritis, right knee (principal); I10 Essential (primary) hypertension; E78.00 Pure hypercholesterolemia, unspecified; M25.761 Osteophyte, right knee; Z79.899 Other long term (current) drug therapy; Z80.9 Family history of malignant neoplasm, unspecified
CPT/HCPCS: 36415; 80048; 85014; 85018; 85049; A9270-GY; G8978-GP-CJ; G8979-GP-CI; J0461; J0690; J1100; J2250; J2405; J2704; J2795; J3490